=== PATIENT | male | born 2000 | race American Indian/Alaskan Native ===

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

== ENCOUNTER 2024-05-29 03:54 | Emergency (ER) | payer BC, MEDICAID | END 2024-05-29 05:10 | disposition home or self-care (01) | LOC: JP.ED 03:54 | DX: K08.89 Other specified disorders of teeth and supporting structures (principal); F17.200 Nicotine dependence, unspecified, uncomplicated | CPT/HCPCS: 99283 ==